=== PATIENT | female | born 1995 | race Caucasian/White ===

== ENCOUNTER 2017-01-18 05:40 | Inpatient (IN) | payer BC ==
[~2017-01-18] VITALS: Ht 157.5 cm; Wt 51.8 kg
[~2017-01-18 05:40] MED LIST: ADDE10 PO; DEXAMETHASONE SOD PHOS 4 MG/ML VIAL IVP ONE; FentaNYL CITRATE-PF 100 MCG/2 ML VIAL IVP ONE; GLYCOPYRROLATE 0.2 MG/ML VIAL IM ONE; LEVO1TAB41 PO; MIDAZOLAM HCL 2 MG/2 ML VIAL IVP ONE; MORPHINE SULFATE 4 MG/ML SYRINGE IVP ONE; NEOSTIGMINE METHYLSULFATE 1 MG/ML 10 ML VIAL IVP ONE; ONDANSETRON HCL 4 MG/2 ML VIAL IVP ONE; PROPOFOL 1% 20 ML VIAL IVP ONE; ROCURONIUM BROMIDE 10 MG/ML 5 ML VIAL IVP ONE
[2017-01-18] MEDS ORDERED: RINGERS SOLUTION,LACTATED 1,000 ML IV ONE ×2 (05:50→06:00)
[2017-01-18] MEDS ORDERED: CeFAZolin 2 GM/DEXTROSE 50 ML IV ONE ×2 (05:50→07:00)
[2017-01-18] MEDS ORDERED: VANCOMYCIN HCL 1 GM/VIAL ONE (06:30)
[2017-01-18] MEDS ORDERED: SODIUM CHLORIDE 0.9% 20 ML ONE (06:30)
[2017-01-18] MEDS ORDERED: SODIUM CL IRRIG SOLN BAG 3,000 ML IRRIG ONE (06:30)
[2017-01-18] MEDS ORDERED: GUM MASTIC/STORAX/MSAL/ALCOHOL LIQUID 0.67 ML VIAL TP ONE (06:30)
[2017-01-18] MEDS ORDERED: BUPIVACAINE HCL/PF 0.5% 30 ML VIAL ONE (06:30)
[2017-01-18] MEDS ORDERED: MICROFIBRILLAR COLLAGEN 1 GM PACKAGE TP ONE (06:30)
[2017-01-18] MEDS ORDERED: MUPIROCIN CALCIUM 2% 22 GM OINTMENT ONE (06:30)
[2017-01-18 06:38] LABS: BASOPHILS % (AUTO) 0.2 % (0.0-2.0); EOSINOPHILS % (AUTO) 4.6 % (1.0-6.0); HEMATOCRIT 39.7 % (36-46); HEMOGLOBIN 13.7 g/dL (12.0-16.0); LYMPHOCYTES # (AUTO) 1.7 K/uL (1.0-4.8); LYMPHOCYTES % (AUTO) 23.3 % (22.0-44.0); MEAN CORPUSCULAR HEMOGLOBIN 31.7 pg (26.0-34.0); MEAN CORPUSCULAR HGB CONC 34.5 G/dL (31.0-37.0); MEAN CORPUSCULAR VOLUME 92 fL (80-100); MONOCYTES # (AUTO) 0.7 K/uL (0.1-1.0); MONOCYTES % (AUTO) 9.9 % (2.0-9.0); NEUTROPHILS # (AUTO) 4.5 K/uL (1.8-7.7); PLATELET COUNT (AUTO) 274 K/uL (150-450); RED BLOOD CELL COUNT(AUTO) 4.32 MIL/uL (4.00-5.20); RED CELL DISTRIBUTION WIDTH 12.5 % (11.5-14.5)
[2017-01-18] MEDS: BUPIVACAINE LIPOSOME/PF 1.3%-13.3MG/ML SUSPENSION 20 ML VIAL INJ ONE ×2 (07:00→09:50)
[2017-01-18] MEDS ORDERED: LIDOCAINE HCL/PF 1% 2 ML VIAL ID ONE (07:00)
[2017-01-18] MEDS ORDERED: RINGERS SOLUTION,LACTATED 2,000 ML IV ONE (07:48)
[2017-01-18] MEDS ORDERED: FentaNYL CITRATE-PF 100 MCG/2 ML VIAL IVP PRN (10:15)
[2017-01-18] MEDS ORDERED: MEPERIDINE-PF 25 MG/ML SYRINGE IVP PRN (10:15)
[2017-01-18] MEDS ORDERED: HYDROmorphone 2 MG/ML SYRINGE IVP PRN ×2 (10:15→20:45)
[2017-01-18] MEDS ORDERED: ONDANSETRON HCL 4 MG/2 ML VIAL ONE (10:24)
[2017-01-18] MEDS ORDERED: PROMETHAZINE HCL 25 MG/ML VIAL IM PRN (10:30)
[2017-01-18 12:00] VITALS: BP 127/66
[2017-01-18] MEDS: ONDANSETRON HCL 4 MG/2 ML VIAL IVP PRN ×2 (12:23→17:11)
[2017-01-18 16:00] VITALS: BP 128/65
[2017-01-18] MEDS ORDERED: INFLUENZA VIRUS VACCINE QVS 2017-18 (3YR+)/PF 60 MCG/0.5 ML SYRINGE IM ONE (16:00)
[2017-01-18] MEDS ORDERED: SODIUM CHLORIDE 0.9% 500 ML IV ONE (16:06)
[2017-01-18] MEDS: CeFAZolin 1 GM/DEXTROSE 50 ML IV SCH ×2 (16:30→23:35)
[2017-01-18 20:00] VITALS: BP 136/87
[2017-01-18] MEDS ORDERED: ZOLPIDEM TARTRATE 5 MG TABLET PO PRN (20:45)
[2017-01-18] MEDS ORDERED: CYCLOBENZAPRINE HCL 10 MG TABLET PO PRN (20:45)
[2017-01-18] MEDS: ACETAMINOPHEN 1000 MG/ISO-OSM 100 ML IV SCH (20:54)
[2017-01-18 23:59] VITALS: BP 111/50
[2017-01-19] MEDS: ACETAMINOPHEN 1000 MG/ISO-OSM 100 ML IV SCH (02:41)
[2017-01-19 04:16] VITALS: BP 108/63
[2017-01-19] MEDS: OxyCODONE HCL/ACETAMINOPHEN 10-325 MG TABLET PO PRN ×2 (06:43→12:01)
[2017-01-19 08:00] VITALS: BP 104/70
[2017-01-19] MEDS ORDERED: ASPIRIN 325 MG TABLET PO SCH (09:00)
[2017-01-19 11:30] VITALS: BP 104/56
[2017-01-19] MEDS ORDERED: HYDR-3705 PO (11:42)
== END 2017-01-19 12:08 | disposition home or self-care (01) | DRG 494 ==
LOC: SURGERY 05:40 → 4E 05:41
PROVIDERS: ADMIT Orthopaedic Surgery; ATTEND Hospitalist
PROC: 0QBG0ZZ Excision of Right Tibia, Open Approach (ICD-10-PCS; 2017-01-18)
PROC: 0QBJ0ZZ Excision of Right Fibula, Open Approach (ICD-10-PCS; 2017-01-18)
PROC: 0KNS0ZZ Release Right Lower Leg Muscle, Open Approach (ICD-10-PCS; 2017-01-18)
PROC: 0KNS0ZZ Release Right Lower Leg Muscle, Open Approach (ICD-10-PCS; 2017-01-18)
PROC: 0KNS0ZZ Release Right Lower Leg Muscle, Open Approach (ICD-10-PCS; 2017-01-18)
PROC: 01NF0ZZ Release Sciatic Nerve, Open Approach (ICD-10-PCS; 2017-01-18)
PROC: 01NH0ZZ Release Peroneal Nerve, Open Approach (ICD-10-PCS; 2017-01-18)
PROC: BW1C1ZZ Fluoroscopy of Lower Extremity using Low Osmolar Contrast (ICD-10-PCS; 2017-01-18)
PROC: 0QBB0ZZ Excision of Right Lower Femur, Open Approach (ICD-10-PCS; principal; 2017-01-18 07:30)
DX: D16.21 Benign neoplasm of long bones of right lower limb (principal); L91.0 Hypertrophic scar; Z88.4 Allergy status to anesthetic agent; Z79.899 Other long term (current) drug therapy; Z88.5 Allergy status to narcotic agent; Q78.6 Multiple congenital exostoses
CPT/HCPCS: 87081; 88302; 88305; 88311; C9290; J0131; J0690; J1100; J1170; J2250; J2270; J2405; J2704; J3010; J3370; J3490; J7040; J7120